=== PATIENT | female | born 1985 | race Caucasian/White ===

== ENCOUNTER 2016-12-05 03:21 | Emergency (ER) | payer OTHER ==
[~2016-12-05 03:21] MED LIST: ALBUTEROL HFA60 DOSE IN; NORCO1 TAB PO
--- NOTE | 2016-12-05 03:37 | ED NURSING NOTES ---
Clinical Report - Nurses [facility] [address] [place] [address] 12/05/2016 3:22 Patient: MARILEE RAMEY TRIAGE Triage time 03:31 Dec 05 2016. Chief Complaint: SHORTNESS OF BREATH. SEPSIS SCREEN: Sepsis Screen: negative. Negative (no infection suspected/documented). Heart rate greater than 90. BHAVANA COMA SCORE: [place] Coma Scale: 15- eyes open spontaneously (4); best verbal response- oriented and converses (5); best motor response- obeys commands (6). --03:34 AliM 03:24 12/05/16. BP: 157/99. HR: 114. RR: 16. O2 saturation: 94%. Temp: 98.7 F. Pain level now: 0/10. --03:34 AliM. Weight: 54.4 kg stated. Height/Length: 62 inches Per Patient. BMI: 22. --03:33 AliM. Medications PredniSONE Oral. --03:26 AliM Albuterol Sulfate Inhalation. --03:26 AliM. Allergies No Known Drug Allergy. --03:27 AliM. History Arrived by private vehicle. Historian: patient. Unaccompanied. Primary physician ([facility]). ( SOB). Onset. (3 days ago). ( Pt reports SOB started 3 days ago. Pt has history of asthma and takes prednisone. Pt reports running out of prednisone 1 week ago.). She has had a cough. No chest pain. PAST MEDICAL HX: Immunizations: up-to-date. Last normal menstrual period- Pt reports not having period for "a couple years.". SOCIAL HX: Light tobacco smoker- less than 1/2 a pack per day (Pt reports smoking 2 cigarettes a day). History of heavy drug use: heroin. (Pt reports heroin use daily.). No alcohol use. No infectious disease exposure. ABUSE ASSESSMENT: No report of abuse. FALL RISK ASSESSMENT: Fall risk assessment completed. No fall risk identified. NUTRITIONAL RISK ASSESSMENT: The nutritional risk assessment revealed no deficiencies. FUNCTIONAL ASSESSMENT: Functional assessment: no impairments noted. LEARNING NEEDS ASSESSMENT: The learning needs assessment revealed no barriers. SKIN INTEGRITY ASSESSMENT: Skin integrity risk assessment completed. No skin integrity risk identified. --03:34 AliM. PROBLEMS: Dyspnea. Substance Abuse. Bronchospasm. Hypertension. Bronchitis. Lifestyle / Substance Problems. Asthma. Herpes Zoster. --03:28 AliM. ADDITIONAL SURGERIES: . Splenectomy. Tubal Ligation. --03:28 AliM. Interventions ID band on patient. To treatment room. --03:34 AliM. PHYSICAL ASSESSMENT Ambulatory to room. GENERAL / NEURO / PSYCH: Alert. Oriented X 4. Appears in no acute distress. HEENT: Mucous membranes are pink. RESPIRATORY: No respiratory distress. Respirations not labored. CVS: Cardiac rhythm: sinus tachycardia. Capillary refill less than 2 seconds. SKIN: Skin is warm and dry. --03:35 AliM. NURSING PROGRESS NOTES Patient gowned. Reassurance given. Two patient identifiers checked. Call light placed in reach. Side rails up x 1. Bed placed in lowest position. Brakes of bed on. Patient ready for evaluation- ED physician notified. --03:35 AliM 03:38 12/05/2016 Prednisone PO Tablets 60 mg given. Allergies verified and confirmed 5 rights. --03:43 Dolores Vega. DISPOSITION / DISCHARGE 03:42 12/05/16. Condition at departure: stable. No learning barriers present. Discharge instructions provided and reviewed with the patient. Reviewed medication(s) side effects, precautions, dosing and course information. Prescription(s) given to the patient. Reviewed need for increased fluid intake. Patient verbalized understanding. Written instructions provided in Frisian. ( Follow up with your PCP in three days. Return if symptoms worsen.). The patient was discharged by the physician. She was discharged home and unaccompanied at time of discharge. She left the Emergency Department ambulatory and via private vehicle. Patient driving. --03:52 Dolores Vega 03:40 12/05/16. BP: deferred. HR: deferred. RR: deferred. O2 saturation: deferred. Temp: deferred. Pain level now deferred. --03:52 Dolores Vega. Locked/Released at 12/07/2016 8:54 by Lupe Lorenzo R.N.
--- NOTE | 2016-12-05 03:37 | ED ORDER SUMMARY ---
..... Patient: MARILEE RAMEY OrderSheet [facility] VisitID: [id number] [address] [place] [address] 31y, F Registration Date/Time: 12/05/2016 ORDER SHEET Weight: 54.4 kg (stated) Allergies: No Known Drug Allergy GENERAL ORDERS: MEDICATION ORDERS: Prednisone PO 60 mg (NOW) (03:34 12/05/2016 Matt Houston) (Ack 3:36 AMcKenna) (3:43 HSoule) IV FLUIDS: ORDER SHEET NOTES: [Electronically signed by Shawn Duran Dr. (03:42 12/05/2016)] [Electronically signed by Lupe Lorenzo R.N. (08:54 12/07/2016)] [Electronically locked/signed by Lupe Lorenzo R.N. (08:54 12/07/2016)]
--- NOTE | 2016-12-05 03:37 | ED CLINICAL REPORT ---
Clinical Report - Physicians/Mid Levels [facility] [address] [place] [address] 12/05/2016 3:22 Patient: MARILEE RAMEY Arrived- By private vehicle. Historian- patient. HISTORY OF PRESENT ILLNESS Chief Complaint: WHEEZING. This started past few days and is still present but is improving. It was abrupt in onset and has been constant and waxing/waning but is not gone now. The dyspnea is described as moderate. The patient has had a cough. (wheezing). Asthma triggers: unknown. Takes asthma medications. (states she had "URI" symptoms recently. They have resolved, however reports they have gotten better but is still wheezing. Reports it gets better with prednisone. States she has been using her inhalers at home.). Similar symptoms previously: None. Recent medical care: Not recently seen/assessed. REVIEW OF SYSTEMS No sore throat, nasal discharge, sinus drainage, fever or chills. No muscle aches. All systems otherwise negative, except as recorded above. PAST HISTORY See nurses notes. Asthma. Medications: Albuterol Sulfate Inhalation. PredniSONE Oral. Allergies: No Known Drug Allergy. SOCIAL HISTORY Never smoker. No alcohol use or drug use. Is a local resident. ADDITIONAL NOTES The nursing notes have been reviewed. PHYSICAL EXAM Vital Signs: 12/05/2016 03:24 BP: 157/99. HR: 114. RR: 16. O2 saturation: 94%. Temp: 98.7 F. Pain level now: 0/10. Hypertensive. Oxygen saturation normal. Appearance: Alert. No acute distress. Eyes: Pupils equal, round and reactive to light. Eyes normal inspection. ENT: Ears normal. Nose normal. Pharynx normal. Uvula midline. Neck: Normal inspection. Neck supple. CVS: Tachycardia. Rhythm normal. No decreased pulses. Respiratory: No respiratory distress. Breath sounds normal. No wheezes, stridor, rales or rhonchi. Abdomen: Soft and nontender. No organomegaly. Back: Normal inspection. Skin: Skin warm and dry. Normal skin color. No rash. Normal skin turgor. Extremities: Extremities exhibit normal ROM. No lower extremity edema. PROGRESS AND PROCEDURES Course of Care: he patient is a 31-year-old female with past medical history significant for asthma presenting for evaluation of shortness of breath and wheezing. On examination, the patient is tachycardic however does not have any wheezing. Patient reports that she's been using her inhalerfrequently today. Patient reports that this was prior to arrival here in the emergency department. Patient presented she is out of prednisone and states that this improves significantly when on prednisone. Patient reports that she had prednisone given the proximally several weeks ago. Patient reports no other symptoms. I discussed with patient workup and plan of care. Patient is agreeable to the treatment plan. Offered patient a breathing treatment however noted that her lungs are clear in examination. Patient stathat sheis feeling better with the breathing however reports that she would likely need prednisone. Based on the patient's history, prednisone we provided. Patient is declining offers of breathing treatments here in the emergency department. Lungs are clear. No evidence of anemia or othersigns of infectious etiology for patient's wheezing. Do not feel further workup in the emergency department is warranted. Patient is nontoxic and is in no acute distress. Patient is agreeable to treatment plan. Discussed the patient workup, diagnosis, home care, follow-up, and to return precautions. All questions answered. Patient expressed understanding of these instructions and was agreeable to them. Do not feel patient requires further emergency department workup/evaluation. Do not feel patient needs to be admitted to the hospital at this time. Patient has good follow up with her primary care doctor next torrent states that she will follow up withthem in the next few days. Patient also understands that she is welcome to return at any point in time for any worsening. Patient states that she will return immediately for any worsening. Disposition: Discharged. Condition: good. INSTRUCTIONS Warnings: GENERAL WARNINGS: Return or contact your physician immediately if your condition worsens or changes unexpectedly, if not improving as expected, or if other problems arise. Specifically return if pain, vomiting, bleeding, breathing difficulty or fever. Your Current Medications: CONTINUE TAKING THE FOLLOWING MEDICATIONS: Albuterol Sulfate Inhalation. PredniSONE Oral. Prescription Medications: Prednisone 50 mg: take 1 orally every day for 5 days. Dispense five (5). No refills. Follow-up: Return to the emergency department as needed. Follow up with your doctor in three days. Reason for referral: recheck today's concerns. Summary of care provided to patient via paper. Screening today revealed the patient's blood pressure to be in the normal range. The patient should follow up with a primary care provider for blood pressure management. Understanding of the discharge instructions verbalized by patient. (Electronically signed by Shawn Duran Dr. 12/05/2016 3:42)
--- NOTE | 2016-12-05 03:37 | ED ORDER SUMMARY ---
..... Patient: MARILEE RAMEY OrderSheet [facility] VisitID: [id number] [address] [place] [address] 31y, F Registration Date/Time: 12/05/2016 ORDER SHEET Weight: 54.4 kg (stated) Allergies: No Known Drug Allergy GENERAL ORDERS: MEDICATION ORDERS: Prednisone PO 60 mg (NOW) (03:34 12/05/2016 Matt Houston) (Ack 3:36 AMcKenna) (3:43 HSoule) IV FLUIDS: ORDER SHEET NOTES: [Electronically signed by Shawn Duran Dr. (03:42 12/05/2016)] [Electronically signed by Lupe Lorenzo R.N. (08:54 12/07/2016)] [Electronically locked/signed by Lupe Lorenzo R.N. (08:54 12/07/2016)]
--- NOTE | 2016-12-07 08:54 | ED MAR SUMMARY ---
..... Medication Administration Record [facility] [address] [place] [address] Patient: MARILEE RAMEY Visit ID: [id number] 31y, F Weight: 54.4 kg Height/Length: 62 in BMI: 22 ALLERGIES: No Known Drug Allergy Given 03:38 12/05/2016 Dolores Vega, Medication Administered: PREDNISONE [PO], Dose: 60 mg Tablets PO. Medication Ordered: Prednisone PO 60 mg (NOW).
--- NOTE | 2016-12-07 08:54 | ED DISCHARGE INSTRUCTIONS ---
Patient: MARILEE RAMEY General Instructions [facility] VisitID: [id number] [place] [address] 31y, F Registration Date/Time: 12/05/2016 INSTRUCTIONS Warnings: GENERAL WARNINGS: Return or contact your physician immediately if your condition worsens or changes unexpectedly, if not improving as expected, or if other problems arise. Specifically return if pain, vomiting, bleeding, breathing difficulty or fever. Your Current Medications: CONTINUE TAKING THE FOLLOWING MEDICATIONS: Albuterol Sulfate Inhalation. PredniSONE Oral. Prescription Medications: Prednisone 50 mg: take 1 orally every day for 5 days. Dispense five (5). No refills. Follow-up: Return to the emergency department as needed. Follow up with your doctor in three days. Reason for referral: recheck today's concerns. Summary of care provided to patient via paper. Screening today revealed the patient's blood pressure to be in the normal range. The patient should follow up with a primary care provider for blood pressure management. Understanding of the discharge instructions verbalized by patient. ADDITIONAL INFORMATION Prednisone Oral tablet What is this medicine? PREDNISONE (PRED ni sone) is a corticosteroid. It is commonly used to treat inflammation of the skin, joints, lungs, and other organs. Common conditions treated include asthma, allergies, and arthritis. It is also used for other conditions, such as blood disorders and diseases of the adrenal glands. How should I use this medicine? Take this medicine by mouth with a glass of water. Follow the directions on the prescription label. Take this medicine with food. If you are taking this medicine once a day, take it in the morning. Do not take more medicine than you are told to take. Do not suddenly stop taking your medicine because you may develop a severe reaction. Your doctor will tell you how much medicine to take. If your doctor wants you to stop the medicine, the dose may be slowly lowered over time to avoid any side effects. Talk to your hand cloth cutter regarding the use of this medicine in children. Special care may be needed. What side effects may I notice from receiving this medicine? Side effects that you should report to your doctor or health career and technology education teacher as soon as possible: allergic reactions like skin rash, itching or hives, swelling of the face, lips, or tongue changes in emotions or moods changes in vision depressed mood eye pain fever or chills, cough, sore throat, pain or difficulty passing urine increased thirst swelling of ankles, feet Side effects that usually do not require medical attention (report to your doctor or health career and technology education teacher if they continue or are bothersome): confusion, excitement, restlessness headache nausea, vomiting skin problems, acne, thin and shiny skin trouble sleeping weight gain What may interact with this medicine? Do not take this medicine with any of the following medications: metyrapone mifepristone This medicine may also interact with the following medications: aminoglutethimide amphotericin B aspirin and aspirin-like medicines barbiturates certain medicines for diabetes, like glipizide or glyburide cholestyramine cholinesterase inhibitors cyclosporine digoxin diuretics ephedrine female hormones, like estrogens and control pills isoniazid ketoconazole NSAIDS, medicines for pain and inflammation, like ibuprofen or naproxen phenytoin rifampin toxoids vaccines warfarin What if I miss a dose? If you miss a dose, take it as soon as you can. If it is almost time for your next dose, talk to your doctor or health career and technology education teacher. You may need to miss a dose or take an extra dose. Do not take double or extra doses without advice. Where should I keep my medicine? Keep out of the reach of children. Store at room temperature between 15 and 30 degrees C (59 and 86 degrees F). Protect from light. Keep container tightly closed. Throw away any unused medicine after the expiration date. What should I tell my health care provider before I take this medicine? They need to know if you have any of these conditions: Sumter's syndrome diabetes glaucoma heart disease high blood pressure infection (especially a virus infection such as chickenpox, cold sores, or herpes) kidney disease liver disease mental illness myasthenia gravis osteoporosis seizures stomach or intestine problems thyroid disease an unusual or allergic reaction to lactose, prednisone, other medicines, foods, dyes, or preservatives or trying to get breast-feeding What should I watch for while using this medicine? Visit your doctor or health career and technology education teacher for regular checks on your progress. If you are taking this medicine over a prolonged period, carry an identification card with your name and address, the type and dose of your medicine, and your doctor's name and address. This medicine may increase your risk of getting an infection. Tell your doctor or health career and technology education teacher if you are around anyone with measles or chickenpox, or if you develop sores or blisters that do not heal properly. If you are going to have surgery, tell your doctor or health career and technology education teacher that you have taken this medicine within the last twelve months. Ask your doctor or health career and technology education teacher about your diet. You may need to lower the amount of salt you eat. This medicine may affect blood sugar levels. If you have diabetes, check with your doctor or health career and technology education teacher before you change your diet or the dose of your diabetic medicine. You have been given the following additional information: Prednisone Oral tablet (Electronically signed by Shawn Duran Dr. 12/05/2016 3:42)
--- NOTE | 2016-12-07 08:54 | ED MED RECONCILIATION SUMMARY ---
Patient: MARILEE RAMEY Medication Reconciliation Report [facility] VisitID: [id number] [address] [place] [address] 31y, F Registration Date/Time: 12/05/2016 Weight: 54.4 kg Height/Length: 62 in. BMI: 22.0 ALLERGIES: No Known Drug Allergy The patient's Home Medications are listed below: CONTINUE TAKING THE FOLLOWING MEDICATIONS: Albuterol Sulfate Inhalation PredniSONE Oral The source(s) of the original Home Medication information: Not obtained. The following Medications were given to the patient in the Emergency Department: Prednisone [PO] PO 60 mg, administered: 12/05/2016 3:38:00 AM The following Medications were prescribed to the patient: Prednisone 50 mg: take 1 orally every day for 5 days. Dispense five (5). No refills. -- Shawn Duran Dr.
--- NOTE | 2016-12-07 08:54 | ED MAR SUMMARY ---
..... Medication Administration Record [facility] [address] [place] [address] Patient: MARILEE RAMEY Visit ID: [id number] 31y, F Weight: 54.4 kg Height/Length: 62 in BMI: 22 ALLERGIES: No Known Drug Allergy Given 03:38 12/05/2016 Dolores Vega, Medication Administered: PREDNISONE [PO], Dose: 60 mg Tablets PO. Medication Ordered: Prednisone PO 60 mg (NOW).
--- NOTE | 2016-12-07 08:54 | ED DISCHARGE INSTRUCTIONS ---
Patient: MARILEE RAMEY General Instructions [facility] VisitID: [id number] [place] [address] 31y, F Registration Date/Time: 12/05/2016 INSTRUCTIONS Warnings: GENERAL WARNINGS: Return or contact your physician immediately if your condition worsens or changes unexpectedly, if not improving as expected, or if other problems arise. Specifically return if pain, vomiting, bleeding, breathing difficulty or fever. Your Current Medications: CONTINUE TAKING THE FOLLOWING MEDICATIONS: Albuterol Sulfate Inhalation. PredniSONE Oral. Prescription Medications: Prednisone 50 mg: take 1 orally every day for 5 days. Dispense five (5). No refills. Follow-up: Return to the emergency department as needed. Follow up with your doctor in three days. Reason for referral: recheck today's concerns. Summary of care provided to patient via paper. Screening today revealed the patient's blood pressure to be in the normal range. The patient should follow up with a primary care provider for blood pressure management. Understanding of the discharge instructions verbalized by patient. ADDITIONAL INFORMATION Prednisone Oral tablet What is this medicine? PREDNISONE (PRED ni sone) is a corticosteroid. It is commonly used to treat inflammation of the skin, joints, lungs, and other organs. Common conditions treated include asthma, allergies, and arthritis. It is also used for other conditions, such as blood disorders and diseases of the adrenal glands. How should I use this medicine? Take this medicine by mouth with a glass of water. Follow the directions on the prescription label. Take this medicine with food. If you are taking this medicine once a day, take it in the morning. Do not take more medicine than you are told to take. Do not suddenly stop taking your medicine because you may develop a severe reaction. Your doctor will tell you how much medicine to take. If your doctor wants you to stop the medicine, the dose may be slowly lowered over time to avoid any side effects. Talk to your system support specialist regarding the use of this medicine in children. Special care may be needed. What side effects may I notice from receiving this medicine? Side effects that you should report to your doctor or health patient care secretary as soon as possible: allergic reactions like skin rash, itching or hives, swelling of the face, lips, or tongue changes in emotions or moods changes in vision depressed mood eye pain fever or chills, cough, sore throat, pain or difficulty passing urine increased thirst swelling of ankles, feet Side effects that usually do not require medical attention (report to your doctor or health patient care secretary if they continue or are bothersome): confusion, excitement, restlessness headache nausea, vomiting skin problems, acne, thin and shiny skin trouble sleeping weight gain What may interact with this medicine? Do not take this medicine with any of the following medications: metyrapone mifepristone This medicine may also interact with the following medications: aminoglutethimide amphotericin B aspirin and aspirin-like medicines barbiturates certain medicines for diabetes, like glipizide or glyburide cholestyramine cholinesterase inhibitors cyclosporine digoxin diuretics ephedrine female hormones, like estrogens and control pills isoniazid ketoconazole NSAIDS, medicines for pain and inflammation, like ibuprofen or naproxen phenytoin rifampin toxoids vaccines warfarin What if I miss a dose? If you miss a dose, take it as soon as you can. If it is almost time for your next dose, talk to your doctor or health patient care secretary. You may need to miss a dose or take an extra dose. Do not take double or extra doses without advice. Where should I keep my medicine? Keep out of the reach of children. Store at room temperature between 15 and 30 degrees C (59 and 86 degrees F). Protect from light. Keep container tightly closed. Throw away any unused medicine after the expiration date. What should I tell my health care provider before I take this medicine? They need to know if you have any of these conditions: Siren's syndrome diabetes glaucoma heart disease high blood pressure infection (especially a virus infection such as chickenpox, cold sores, or herpes) kidney disease liver disease mental illness myasthenia gravis osteoporosis seizures stomach or intestine problems thyroid disease an unusual or allergic reaction to lactose, prednisone, other medicines, foods, dyes, or preservatives or trying to get breast-feeding What should I watch for while using this medicine? Visit your doctor or health patient care secretary for regular checks on your progress. If you are taking this medicine over a prolonged period, carry an identification card with your name and address, the type and dose of your medicine, and your doctor's name and address. This medicine may increase your risk of getting an infection. Tell your doctor or health patient care secretary if you are around anyone with measles or chickenpox, or if you develop sores or blisters that do not heal properly. If you are going to have surgery, tell your doctor or health patient care secretary that you have taken this medicine within the last twelve months. Ask your doctor or health patient care secretary about your diet. You may need to lower the amount of salt you eat. This medicine may affect blood sugar levels. If you have diabetes, check with your doctor or health patient care secretary before you change your diet or the dose of your diabetic medicine. You have been given the following additional information: Prednisone Oral tablet (Electronically signed by Shawn Duran Dr. 12/05/2016 3:42)
--- NOTE | 2016-12-07 08:54 | ED MED RECONCILIATION SUMMARY ---
Patient: MARILEE RAMEY Medication Reconciliation Report [facility] VisitID: [id number] [place] [address] 31y, F Registration Date/Time: 12/05/2016 Weight: 54.4 kg Height/Length: 62 in. BMI: 22.0 ALLERGIES: No Known Drug Allergy The patient's Home Medications are listed below: CONTINUE TAKING THE FOLLOWING MEDICATIONS: Albuterol Sulfate Inhalation PredniSONE Oral The source(s) of the original Home Medication information: Not obtained. The following Medications were given to the patient in the Emergency Department: Prednisone [PO] PO 60 mg, administered: 12/05/2016 3:38:00 AM The following Medications were prescribed to the patient: Prednisone 50 mg: take 1 orally every day for 5 days. Dispense five (5). No refills. -- Shawn Duran Dr.
== END 2016-12-05 03:42 | disposition home or self-care (01) ==
LOC: ED SRH 03:21
DX: J45.901 Unspecified asthma with (acute) exacerbation (principal); R00.0 Tachycardia, unspecified; I10 Essential (primary) hypertension; Z79.899 Other long term (current) drug therapy

== ENCOUNTER 2017-03-18 13:57 | Outpatient (CLI) | payer OTHER ==
--- NOTE | 2017-03-18 14:28 | DIAGNOSTIC IMAGING REPORT ---
PROCEDURE: CT THORAX WITHOUT CONTRAST INDICATION: NODULE OF LEFT LUNG TECHNIQUE: Noncontrast axial images were obtained of the chest with coronal and sagittal reformations. COMPARISON: Chest x-ray 08/28/2016. FINDINGS: Minor lingular and right middle lobe scarring. No evidence of pulmonary nodules or consolidation. No adenopathy or effusion. Normal thoracic aorta. Heart size is normal. There is no pericardial effusion. Gastric surgical changes. Moderate degenerative changes of the spine. IMPRESSION: 1. No evidence of pulmonary nodules 2. Minor scarring
== END 2017-03-18 23:00 | disposition home or self-care (01) ==
LOC: CT SRH 13:57
DX: R91.1 Solitary pulmonary nodule (principal)